=== PATIENT | female | born 1950 | race Caucasian/White ===

== ENCOUNTER 2017-06-20 06:25 | Inpatient (IN) ==
[~2017-06-20 06:25] MED LIST: FAMOTIDINE 20 MG/2 ML VIAL IV ONE; LEVOFLOXACIN INJ 500 MG in PREMIX 1 EACH IV ONE; SODIUM CHLORIDE 0.45% 1,000 ML IV SCH; diphenhydrAMINE 50 MG/1 ML VIAL IV ONE; methylPREDNISolone SOD SUC 125 MG/2 ML VIAL IV ONE
[2017-06-20] MEDS ORDERED: DIAZEPAM 5 MG TABLET PO STA (08:06)
[2017-06-20] MEDS ORDERED: DIAZEPAM 5 MG TABLET ONE ×2 (08:10)
[2017-06-20] MEDS ORDERED: HEPARIN/NACL 0.9% 2 UNITS/ML 2,000 ML IV ONE (08:51)
[2017-06-20] MEDS ORDERED: methylPREDNISolone SOD SUC 125 MG/2 ML VIAL ONE (09:13)
[2017-06-20] MEDS ORDERED: diphenhydrAMINE 50 MG/1 ML VIAL ONE (09:13)
[2017-06-20] MEDS ORDERED: LEVOFLOXACIN INJ 100 ML IV ONE (09:14)
[2017-06-20] MEDS ORDERED: FAMOTIDINE 20 MG/2 ML VIAL IV ONE (09:14)
[2017-06-20 09:18] LABS: Apearance,Urine CLEAR (Clear); Bilirubin,Urine Negative (Negative); Blood, Urine Small mg/dL (Negative); Glucose,Urine (UA) Negative (Negative); Hyaline Casts,Urine 1 /LPF (0-3); Ketones,Urine Negative (Negative); Mucus,Urine Many /LPF (Occasional); Nitrite,Urine Negative (Negative); Protein,Urine Negative; RBC,Urine <1 /HPF (0-4); Squamous Epithelial Cell,Urine Occasional /HPF (0-10); Urine Color Yellow (Yellow); Urine Specific Gravity 1.011 (1.001-1.035); Urine Urobilinogen < 2.0 EU/DL (0.2-1.0); WBC,Urine <1 /HPF (0-6)
[2017-06-20] MEDS ORDERED: fentaNYL 100 MCG/2 ML VIAL ONE (09:57)
[2017-06-20] MEDS ORDERED: MIDAZOLAM 2 MG/2 ML VIAL ONE ×3 (09:58→12:07)
[2017-06-20] MEDS: MIDAZOLAM 2 MG/2 ML VIAL IV ONE ×2 (10:10→12:24)
[2017-06-20] MEDS: fentaNYL 100 MCG/2 ML VIAL IV ONE ×2 (10:13→12:23)
[2017-06-20] MEDS ORDERED: HYDROmorphone 2 MG/1 ML VIAL ONE (12:08)
[2017-06-20] MEDS: ONDANSETRON 4 MG/2 ML VIAL IV ONE ×2 (12:24→12:38)
[2017-06-20] MEDS ORDERED: PANTOPRAZOLE 40 MG VIAL IV ONE (13:11)
[2017-06-20] MEDS ORDERED: PROMETHAZINE 25 MG/1 ML VIAL ONE (13:16)
[2017-06-20] MEDS ORDERED: PROMETHAZINE 25 MG/1 ML VIAL IM ONE (13:19)
[2017-06-20] MEDS: MORPHINE 2 MG/1 ML SYRINGE IV PRN ×3 (13:19→19:44)
[2017-06-20] MEDS: ONDANSETRON 4 MG/2 ML VIAL IV PRN (19:45)
[2017-06-20] MEDS: PROMETHAZINE 25 MG TABLET PO PRN (20:50)
[2017-06-20] MEDS: ZALEPLON 5 MG CAPSULE PO SCH (20:50)
[2017-06-20] MEDS: GABAPENTIN 300 MG CAPSULE PO SCH (20:50)
[2017-06-21] MEDS: ONDANSETRON 4 MG/2 ML VIAL IV PRN ×4 (00:06→21:03)
[2017-06-21] MEDS: MORPHINE 2 MG/1 ML SYRINGE IV PRN ×2 (03:43→08:46)
[2017-06-21] MEDS: PROMETHAZINE 25 MG TABLET PO PRN (03:43)
[2017-06-21] MEDS: PROMETHAZINE 25 MG/1 ML VIAL IM PRN ×2 (09:54→17:24)
[2017-06-21] MEDS: SODIUM CHLORIDE 0.45% 1,000 ML IV SCH ×2 (09:59→17:54)
[2017-06-21] MEDS: GABAPENTIN 300 MG CAPSULE PO SCH ×2 (09:59→21:18)
[2017-06-21] MEDS: HYDROmorphone 2 MG/1 ML VIAL IV PRN ×3 (11:49→21:00)
[2017-06-21] MEDS: ZALEPLON 5 MG CAPSULE PO SCH (21:19)
[2017-06-22] MEDS: PROMETHAZINE 25 MG/1 ML VIAL IM PRN (00:11)
[2017-06-22] MEDS: HYDROmorphone 2 MG/1 ML VIAL IV PRN ×7 (00:14→20:28)
[2017-06-22] MEDS: SODIUM CHLORIDE 0.45% 1,000 ML IV SCH ×3 (02:15→21:21)
[2017-06-22] MEDS: ONDANSETRON 4 MG/2 ML VIAL IV PRN (03:25)
[2017-06-22] MEDS ORDERED: DOCUSATE SODIUM 100 MG CAPSULE PO ONE (08:52)
[2017-06-22] MEDS ORDERED: ONDANSETRON 4 MG/2 ML VIAL IV ONE (08:52)
[2017-06-22] MEDS: GABAPENTIN 300 MG CAPSULE PO SCH ×2 (11:41→20:24)
[2017-06-22] MEDS: ONDANSETRON 4 MG/2 ML VIAL IV SCH ×2 (13:47→20:25)
[2017-06-22] MEDS: ZALEPLON 5 MG CAPSULE PO SCH (20:24)
[2017-06-22] MEDS ORDERED: HYDROmorphone 2 MG/1 ML VIAL IV PRN (21:14)
[2017-06-23] MEDS: ONDANSETRON 4 MG/2 ML VIAL IV SCH ×2 (02:22→08:45)
[2017-06-23] MEDS: GABAPENTIN 300 MG CAPSULE PO SCH (08:33)
[2017-06-23 11:39] VITALS: BP 118/61
[2017-06-23] MEDS ORDERED: HEPARIN LOCK FLUSH 500 UNIT/5 ML SYRINGE IV PRN (12:33)
== END 2017-06-23 13:20 | disposition home or self-care (01) | DRG 357 ==
LOC: N.RAD 06:25 → N.SDSINP 07:37 → N.4E 10:14
PROVIDERS: ADMIT Radiology Diagnostic Radiology; ATTEND Radiology Diagnostic Radiology

== ENCOUNTER 2018-02-06 16:14 | Inpatient (IN) ==
[2018-02-06] MEDS ORDERED: SODIUM CHLORIDE 0.9% 500 ML IV STA ×2 (18:03→19:15)
[2018-02-06] MEDS ORDERED: ONDANSETRON 4 MG/2 ML VIAL IV STA (18:03)
[2018-02-06 18:28] LABS: PT Patient Result 10.7 SECS
[2018-02-06 18:35] LABS: Apearance,Urine CLEAR (Clear); Bilirubin,Urine Negative (Negative); Blood, Urine Negative (Negative); Glucose,Urine (UA) Negative (Negative); Ketones,Urine Negative (Negative); Mucus,Urine Few /LPF (Occasional); Nitrite,Urine Negative (Negative); Protein,Urine 30 MG/DL; Squamous Epithelial Cell,Urine Occasional /HPF (0-10); Urine Color Amber (Yellow); Urine Specific Gravity 1.017 (1.001-1.035); WBC,Urine 3 /HPF (0-6)
[2018-02-06 18:38] LABS: Albumin 2.6 G/DL (3.4-5.0); Bilirubin,Total 1.8 MG/DL (0.2-1.0); Calcium 8.3 MG/DL (8.5-10.1); Osmolality,Calculated 275.5 MOS/KG (273-304); Potassium 3.7 MMOL/L (3.5-5.1); Total Protein 7.1 G/DL (6.4-8.3)
[2018-02-06 18:41] LABS: Lactic Acid 2.1 MMOL/L (0.4-2.0)
[2018-02-06 20:17] LABS: Basophils % 0.8 % (0.0-0.8); Eosinophils # 0.1 10*3/uL (0.0-0.87); Eosinophils % 4.9 % (0.00-10.9); Hematocrit 26.3 VOL% (35.7-47.0); Hemoglobin 8.3 GM/DL (12.0-16.0); Immature Granulocytes % 3.3 %; Immature Granulocytes Absolute 0.04 #; Lymphocytes # 0.6 10*3/uL (1.4-4.0); Lymphocytes % 51.6 % (21.3-54.2); Mean Corpuscular HGB Conc 31.6 GM/DL (32-36); Mean Corpuscular Hemoglobin 36 PG (27-34); Mean Corpuscular Volume 113.4 FL (87-102); Mean Platelet Volume 13.2 FL (9.6-12.0); Monocytes # 0.2 10*3/uL (0.11-0.8); Monocytes % 13.1 % (1.7-12.7); Neutrophils # 0.3 10*3/uL (1.4-7.4); Neutrophils % 26.3 % (38.7-73.9); Red Blood Count 2.32 MC/CUMM (3.8-5.5); Red Cell Distribution Width 14.8 % (9.3-17.3); White Blood Count 1.2 T/CUMM (4-12)
[2018-02-06 20:21] LABS: Platelet Count 23 T/CUMM (130-400)
[2018-02-06 20:48] LABS: Eosinophils 10 % (0-10); Lymphocytes 47 % (20-55); Platelet Estimate Decreased; Segmented Neutrophils 30 % (50-85); Total Cells Counted 100
[2018-02-06 20:49] LABS: Anisocytosis 1+; Hypochromasia 2+; Tear Drop Cells Few
[2018-02-06 20:50] LABS: Ovalocytes Few
[2018-02-06 21:45] LABS: Basophils % 1.4 % (0.0-0.8); Eosinophils # 0.1 10*3/uL (0.0-0.87); Eosinophils % 6.8 % (0.00-10.9); Hematocrit 26.2 VOL% (35.7-47.0); Hemoglobin 8.2 GM/DL (12.0-16.0); Immature Granulocytes % 4.8 %; Immature Granulocytes Absolute 0.07 #; Lymphocytes # 0.9 10*3/uL (1.4-4.0); Lymphocytes % 58.9 % (21.3-54.2); Mean Corpuscular HGB Conc 31.3 GM/DL (32-36); Mean Corpuscular Hemoglobin 36 PG (27-34); Mean Corpuscular Volume 113.9 FL (87-102); Monocytes # 0.1 10*3/uL (0.11-0.8); Monocytes % 7.5 % (1.7-12.7); Neutrophils # 0.3 10*3/uL (1.4-7.4); Neutrophils % 20.6 % (38.7-73.9); Red Cell Distribution Width 14.9 % (9.3-17.3); White Blood Count 1.5 T/CUMM (4-12)
[2018-02-06 21:55] LABS: Platelet Count 23 T/CUMM (130-400)
[2018-02-06 22:15] LABS: Eosinophils 7 % (0-10); Lymphocytes 62 % (20-55); Platelet Estimate Decreased; Segmented Neutrophils 26 % (50-85); Total Cells Counted 99
[2018-02-06] MEDS ORDERED: HYDROmorphone 2 MG/1 ML VIAL IV STA (22:44)
[2018-02-07] MEDS ORDERED: diphenhydrAMINE CAP 25 MG CAPSULE PO PRN (01:27)
[2018-02-07] MEDS ORDERED: CLORAZEPATE 7.5 MG TABLET PO PRN (01:27)
[2018-02-07] MEDS ORDERED: DIPHENOXYLATE/ATROPINE 2.5-0.025 MG TABLET PO PRN (01:27)
[2018-02-07] MEDS ORDERED: PROMETHAZINE 25 MG TABLET PO PRN (01:27)
[2018-02-07] MEDS ORDERED: cycloSPORINE OPH EMUL 1 VIAL BOTH EYES PRN (01:27)
[2018-02-07] MEDS: SODIUM CHLORIDE 0.9% 1,000 ML IV SCH ×2 (02:24→21:15)
[2018-02-07] MEDS ORDERED: ZALEPLON 5 MG CAPSULE ONE (02:57)
[2018-02-07] MEDS: ZALEPLON 5 MG CAPSULE PO SCH ×2 (02:58→21:18)
[2018-02-07 03:43] LABS: Basophils % 1.4 % (0.0-0.8); Eosinophils # 0.1 10*3/uL (0.0-0.87); Hematocrit 23.7 VOL% (35.7-47.0); Hemoglobin 7.4 GM/DL (12.0-16.0); Lymphocytes % 67.1 % (21.3-54.2); Mean Corpuscular HGB Conc 31.2 GM/DL (32-36); Mean Corpuscular Hemoglobin 35 PG (27-34); Mean Corpuscular Volume 112.9 FL (87-102); Monocytes # 0.1 10*3/uL (0.11-0.8); Monocytes % 6.3 % (1.7-12.7); Neutrophils # 0.3 10*3/uL (1.4-7.4); Neutrophils % 18.2 % (38.7-73.9); Red Cell Distribution Width 14.8 % (9.3-17.3); White Blood Count 1.4 T/CUMM (4-12)
[2018-02-07 03:50] LABS: Platelet Count 20 T/CUMM (130-400)
[2018-02-07 04:09] LABS: Calcium 7.6 MG/DL (8.5-10.1); Osmolality,Calculated 280.3 MOS/KG (273-304); Potassium 3.6 MMOL/L (3.5-5.1)
[2018-02-07 04:22] LABS: Eosinophils 5 % (0-10); Lymphocytes 73 % (20-55); Segmented Neutrophils 14 % (50-85)
[2018-02-07 04:23] LABS: Platelet Estimate Decreased; Polychromasia Few; Total Cells Counted 100
[2018-02-07] MEDS ORDERED: SODIUM CHLORIDE 0.9% 1,000 ML IV PRN (07:47)
[2018-02-07] MEDS ORDERED: MYLANTA/LIDO VISC/NYST 180 ML BOTTLE SWISH/SWAL PRN (07:51)
[2018-02-07] MEDS: guaiFENesin/DM ER 600-30 MG TABLET PO SCH ×2 (09:05→21:43)
[2018-02-07] MEDS: GABAPENTIN 300 MG CAPSULE PO SCH (09:09)
[2018-02-07] MEDS: CIPROFLOXACIN 500 MG TABLET PO SCH ×2 (09:10→21:18)
[2018-02-07] MEDS: PANTOPRAZOLE 40 MG TABLET PO SCH (09:11)
[2018-02-07] MEDS: fentaNYL 50 MCG/HR PATCH TRANSDERM SCH (09:12)
[2018-02-07] MEDS: FILGRASTIM-SNDZ 300 MCG/0.5 ML SYRINGE SUBCUT SCH (09:13)
[2018-02-07] MEDS: FLUCONAZOLE INJ 200 MG in PREMIX 1 EACH IV SCH (09:15)
[2018-02-07] MEDS: ONDANSETRON 4 MG/2 ML VIAL IV PRN ×2 (16:08→22:28)
[2018-02-07] MEDS: GABAPENTIN 600 MG TABLET PO SCH (21:29)
[2018-02-08 05:58] LABS: Basophils % 0.6 % (0.0-0.8); Eosinophils # 0.1 10*3/uL (0.0-0.87); Hematocrit 21.5 VOL% (35.7-47.0); Hemoglobin 6.6 GM/DL (12.0-16.0); Immature Granulocytes % 5.1 %; Immature Granulocytes Absolute 0.08 #; Lymphocytes % 65.2 % (21.3-54.2); Mean Corpuscular HGB Conc 30.7 GM/DL (32-36); Mean Corpuscular Hemoglobin 34 PG (27-34); Mean Corpuscular Volume 109.1 FL (87-102); Mean Platelet Volume 13.7 FL (9.6-12.0); Monocytes # 0.2 10*3/uL (0.11-0.8); Monocytes % 10.8 % (1.7-12.7); Neutrophils # 0.2 10*3/uL (1.4-7.4); Neutrophils % 11.3 % (38.7-73.9); Red Blood Count 1.97 MC/CUMM (3.8-5.5); Red Cell Distribution Width 17.3 % (9.3-17.3); White Blood Count 1.6 T/CUMM (4-12)
[2018-02-08 06:11] LABS: Platelet Count 26 T/CUMM (130-400)
[2018-02-08 06:15] LABS: Calcium 7.9 MG/DL (8.5-10.1); Osmolality,Calculated 280.1 MOS/KG (273-304); Potassium 3.6 MMOL/L (3.5-5.1)
[2018-02-08 06:45] LABS: Eosinophils 14 % (0-10); Lymphocytes 62 % (20-55); Platelet Estimate Decreased; Segmented Neutrophils 19 % (50-85); Total Cells Counted 100
[2018-02-08 06:46] LABS: Hypochromasia 1+; Microcytosis 1+
[2018-02-08] MEDS ORDERED: SODIUM CHLORIDE 0.9% 1,000 ML IV PRN (07:54)
[2018-02-08] MEDS: FILGRASTIM-SNDZ 300 MCG/0.5 ML SYRINGE SUBCUT SCH (08:51)
[2018-02-08] MEDS: PANTOPRAZOLE 40 MG TABLET PO SCH (08:52)
[2018-02-08] MEDS: CIPROFLOXACIN 500 MG TABLET PO SCH ×2 (08:52→21:14)
[2018-02-08] MEDS: GABAPENTIN 300 MG CAPSULE PO SCH (08:52)
[2018-02-08] MEDS: FLUCONAZOLE INJ 200 MG in PREMIX 1 EACH IV SCH (08:52)
[2018-02-08] MEDS: guaiFENesin/DM ER 600-30 MG TABLET PO SCH ×2 (09:05→21:52)
[2018-02-08] MEDS: ONDANSETRON 4 MG/2 ML VIAL IV PRN (09:54)
[2018-02-08] MEDS: SODIUM CHLORIDE 0.9% 1,000 ML IV SCH (12:01)
[2018-02-08] MEDS: DOCUSATE SODIUM 100 MG CAPSULE PO PRN (12:05)
[2018-02-08] MEDS: MAGNESIUM CHLORIDE 64 MG TABLET PO SCH (17:09)
[2018-02-08] MEDS: MULTIVITAMIN (BEROCCA) TABLET PO SCH (17:09)
[2018-02-08] MEDS: GABAPENTIN 600 MG TABLET PO SCH (21:14)
[2018-02-08] MEDS: ZALEPLON 5 MG CAPSULE PO SCH (21:14)
[2018-02-09 04:06] LABS: Basophils % 1.1 % (0.0-0.8); Eosinophils # 0.1 10*3/uL (0.0-0.87); Hematocrit 34.5 VOL% (35.7-47.0); Immature Granulocytes % 0.7 %; Immature Granulocytes Absolute 0.02 #; Lymphocytes # 1.2 10*3/uL (1.4-4.0); Lymphocytes % 43.1 % (21.3-54.2); Mean Corpuscular HGB Conc 32.5 GM/DL (32-36); Mean Corpuscular Hemoglobin 33 PG (27-34); Mean Corpuscular Volume 102.4 FL (87-102); Monocytes # 0.4 10*3/uL (0.11-0.8); Monocytes % 12.8 % (1.7-12.7); Neutrophils # 1.1 10*3/uL (1.4-7.4); Neutrophils % 38.3 % (38.7-73.9); Red Blood Count 3.37 MC/CUMM (3.8-5.5); Red Cell Distribution Width 20.8 % (9.3-17.3); White Blood Count 2.7 T/CUMM (4-12)
[2018-02-09 04:16] LABS: Calcium 7.7 MG/DL (8.5-10.1); Osmolality,Calculated 282.8 MOS/KG (273-304); Potassium 3.6 MMOL/L (3.5-5.1)
[2018-02-09 04:22] LABS: % Iron Saturation 41.9 % (18-50); Ferritin 1364.5 ng/ml (8-252)
[2018-02-09 04:30] LABS: Folate > 24.0 NG/ML (5.4-24.0); Vitamin B12 > 2000 PG/ML (211-911)
[2018-02-09 05:03] LABS: Platelet Count 31 T/CUMM (130-400)
[2018-02-09 05:04] LABS: Hemoglobin 11.2 GM/DL (12.0-16.0)
[2018-02-09 05:19] LABS: Atypical Lymphocytes Few; Band Neutrophils 1 % (0-10); Eosinophils 7 % (0-10); Lymphocytes 46 % (20-55); Nucleated Red Blood Cells 1 (0-5); Segmented Neutrophils 33 % (50-85); Total Cells Counted 100
[2018-02-09 05:20] LABS: Hypochromasia 1+; Macrocytosis 1+
[2018-02-09 05:21] LABS: Anisocytosis 1+; Ovalocytes Slight; Platelet Estimate Decreased
[2018-02-09 05:35] LABS: Sedimentation Rate-Westergren 65 MM/HR (0-30)
[2018-02-09] MEDS: MAGNESIUM CHLORIDE 64 MG TABLET PO SCH (08:59)
[2018-02-09] MEDS: GABAPENTIN 300 MG CAPSULE PO SCH (08:59)
[2018-02-09] MEDS: FLUCONAZOLE INJ 200 MG in PREMIX 1 EACH IV SCH (08:59)
[2018-02-09] MEDS: MULTIVITAMIN (BEROCCA) TABLET PO SCH (08:59)
[2018-02-09] MEDS: PANTOPRAZOLE 40 MG TABLET PO SCH (08:59)
[2018-02-09] MEDS: CIPROFLOXACIN 500 MG TABLET PO SCH ×2 (08:59→20:07)
[2018-02-09] MEDS: FILGRASTIM-SNDZ 300 MCG/0.5 ML SYRINGE SUBCUT SCH (09:00)
[2018-02-09] MEDS: guaiFENesin/DM ER 600-30 MG TABLET PO SCH ×2 (09:00→20:07)
[2018-02-09] MEDS: SODIUM CHLORIDE 0.9% 1,000 ML IV SCH ×3 (09:05→20:10)
[2018-02-09] MEDS: DOCUSATE SODIUM 100 MG CAPSULE PO PRN (09:16)
[2018-02-09 10:15] LABS: Hemoglobin A1 (Alkaline) 97.1 % (96.5-98.5); Hemoglobin A2 (Alkaline) 2.9 % (1.5-3.5)
[2018-02-09] MEDS ORDERED: BISACODYL 5 MG TABLET PO PRN (17:08)
[2018-02-09] MEDS: GABAPENTIN 600 MG TABLET PO SCH (20:07)
[2018-02-09] MEDS: ZALEPLON 5 MG CAPSULE PO SCH (20:07)
[2018-02-10] MEDS: MULTIVITAMIN (BEROCCA) TABLET PO SCH (09:47)
[2018-02-10] MEDS: GABAPENTIN 300 MG CAPSULE PO SCH (09:47)
[2018-02-10] MEDS: fentaNYL 50 MCG/HR PATCH TRANSDERM SCH (09:48)
[2018-02-10] MEDS: PANTOPRAZOLE 40 MG TABLET PO SCH (09:48)
[2018-02-10] MEDS: CIPROFLOXACIN 500 MG TABLET PO SCH (09:48)
[2018-02-10] MEDS: FLUCONAZOLE INJ 200 MG in PREMIX 1 EACH IV SCH (09:48)
[2018-02-10] MEDS: MAGNESIUM CHLORIDE 64 MG TABLET PO SCH (09:48)
[2018-02-10] MEDS: FILGRASTIM-SNDZ 300 MCG/0.5 ML SYRINGE SUBCUT SCH (09:49)
[2018-02-10] MEDS: guaiFENesin/DM ER 600-30 MG TABLET PO SCH (09:49)
[2018-02-10] MEDS: SODIUM CHLORIDE 0.9% 1,000 ML IV SCH (09:49)
[2018-02-10] MEDS ORDERED: HEPARIN LOCK FLUSH 500 UNIT/5 ML SYRINGE IV ONE (11:47)
[2018-02-10 11:52] VITALS: BP 101/51
== END 2018-02-10 12:35 | disposition home health service (06) | DRG 809 ==
LOC: N.EDINP 16:14 → N.ED 16:14 → N.4E 02-07 01:29
PROVIDERS: ADMIT Hospitalist; ATTEND Hospitalist

== ENCOUNTER 2018-03-03 11:03 | Inpatient (IN) ==
[2018-03-03 12:01] LABS: Basophils # 0.1 10*3/uL (0.0-0.2); Basophils % 0.9 % (0.0-0.8); Eosinophils # 0.3 10*3/uL (0.0-0.87); Eosinophils % 2.5 % (0.00-10.9); Hematocrit 35.9 VOL% (35.7-47.0); Hemoglobin 11.4 GM/DL (12.0-16.0); Immature Granulocytes % 0.4 %; Immature Granulocytes Absolute 0.05 #; Lymphocytes # 1.3 10*3/uL (1.4-4.0); Mean Corpuscular HGB Conc 31.8 GM/DL (32-36); Mean Corpuscular Hemoglobin 33 PG (27-34); Mean Corpuscular Volume 103.2 FL (87-102); Monocytes # 1.2 10*3/uL (0.11-0.8); Monocytes % 10.7 % (1.7-12.7); Neutrophils # 8.2 10*3/uL (1.4-7.4); Neutrophils % 73.5 % (38.7-73.9); Platelet Count 217 T/CUMM (130-400); Red Blood Count 3.48 MC/CUMM (3.8-5.5); Red Cell Distribution Width 19.3 % (9.3-17.3); White Blood Count 11.2 T/CUMM (4-12)
[2018-03-03 12:26] LABS: Albumin 1.9 G/DL (3.4-5.0); Bilirubin,Total 1.3 MG/DL (0.2-1.0); Calcium 8.4 MG/DL (8.5-10.1); Osmolality,Calculated 280.1 MOS/KG (273-304); Potassium 3.8 MMOL/L (3.5-5.1)
[2018-03-03] MEDS ORDERED: ONDANSETRON 4 MG/2 ML VIAL IV STA (13:31)
[2018-03-03] MEDS ORDERED: HYDROmorphone 2 MG/1 ML VIAL IV STA (14:45)
[2018-03-03] MEDS ORDERED: ACETAMINOPHEN 325 MG TABLET PO PRN (15:32)
[2018-03-03] MEDS ORDERED: diphenhydrAMINE CAP 25 MG CAPSULE PO PRN (16:45)
[2018-03-03] MEDS ORDERED: cycloSPORINE OPH EMUL 1 VIAL BOTH EYES PRN (16:45)
[2018-03-03] MEDS ORDERED: DIPHENOXYLATE/ATROPINE 2.5-0.025 MG TABLET PO PRN (16:45)
[2018-03-03] MEDS ORDERED: CLORAZEPATE 7.5 MG TABLET PO PRN ×2 (16:45→16:48)
[2018-03-03] MEDS: SODIUM CHLORIDE 0.9% 1,000 ML IV SCH (18:46)
[2018-03-03] MEDS: guaiFENesin/DM ER 600-30 MG TABLET PO SCH (18:50)
[2018-03-03] MEDS: DOCUSATE SODIUM 100 MG CAPSULE PO PRN (20:05)
[2018-03-03] MEDS: ZALEPLON 5 MG CAPSULE PO SCH (20:05)
[2018-03-03] MEDS ORDERED: GABAPENTIN 300 MG CAPSULE PO SCH (21:00)
[2018-03-04] MEDS: guaiFENesin/DM ER 600-30 MG TABLET PO SCH ×2 (03:58→21:02)
[2018-03-04 04:17] LABS: Basophils # 0.1 10*3/uL (0.0-0.2); Basophils % 0.9 % (0.0-0.8); Eosinophils # 0.5 10*3/uL (0.0-0.87); Eosinophils % 5.2 % (0.00-10.9); Hematocrit 31.4 VOL% (35.7-47.0); Hemoglobin 10.1 GM/DL (12.0-16.0); Immature Granulocytes % 0.5 %; Immature Granulocytes Absolute 0.05 #; Lymphocytes # 2.2 10*3/uL (1.4-4.0); Lymphocytes % 21.9 % (21.3-54.2); Mean Corpuscular HGB Conc 32.2 GM/DL (32-36); Mean Corpuscular Hemoglobin 34 PG (27-34); Mean Corpuscular Volume 104.3 FL (87-102); Mean Platelet Volume 10.2 FL (9.6-12.0); Monocytes # 1.2 10*3/uL (0.11-0.8); Monocytes % 11.9 % (1.7-12.7); Neutrophils % 59.6 % (38.7-73.9); Platelet Count 198 T/CUMM (130-400); Red Blood Count 3.01 MC/CUMM (3.8-5.5); Red Cell Distribution Width 19.2 % (9.3-17.3)
[2018-03-04 04:40] LABS: Calcium 7.9 MG/DL (8.5-10.1); Osmolality,Calculated 282.8 MOS/KG (273-304); Potassium 3.8 MMOL/L (3.5-5.1)
[2018-03-04] MEDS: SODIUM CHLORIDE 0.9% 1,000 ML IV SCH ×2 (05:24→18:28)
[2018-03-04 07:00] LABS: Apearance,Urine Slightly Hazy (Clear); Bilirubin,Urine Negative (Negative); Blood, Urine Negative (Negative); Glucose,Urine (UA) Negative (Negative); Ketones,Urine Negative (Negative); Mucus,Urine Many /LPF (Occasional); Nitrite,Urine Negative (Negative); Protein,Urine Negative; RBC,Urine 2 /HPF (0-4); Squamous Epithelial Cell,Urine Occasional /HPF (0-10); Urine Color Yellow (Yellow); Urine Specific Gravity 1.013 (1.001-1.035); WBC,Urine 91 /HPF (0-6)
[2018-03-04] MEDS: GABAPENTIN 300 MG CAPSULE PO SCH ×2 (08:48→20:33)
[2018-03-04] MEDS: MAGNESIUM CHLORIDE 64 MG TABLET PO SCH (08:48)
[2018-03-04] MEDS: ONDANSETRON 4 MG/2 ML VIAL IV PRN ×2 (08:49→18:28)
[2018-03-04] MEDS: MULTIVITAMIN (BEROCCA) TABLET PO SCH (09:34)
[2018-03-04] MEDS: fentaNYL 50 MCG/HR PATCH TRANSDERM SCH (10:19)
[2018-03-04] MEDS: CIPROFLOXACIN 500 MG TABLET PO SCH ×2 (10:19→20:33)
[2018-03-04] MEDS: HYDROmorphone 2 MG/1 ML VIAL IV PRN ×2 (10:21→20:54)
[2018-03-04] MEDS: DOCUSATE SODIUM 100 MG CAPSULE PO PRN ×2 (10:22→20:54)
[2018-03-04] MEDS: ZALEPLON 5 MG CAPSULE PO SCH (20:33)
[2018-03-05] MEDS: guaiFENesin/DM ER 600-30 MG TABLET PO SCH ×3 (04:31→16:13)
[2018-03-05] MEDS: MULTIVITAMIN (BEROCCA) TABLET PO SCH (08:32)
[2018-03-05] MEDS: ONDANSETRON 4 MG/2 ML VIAL IV PRN (08:32)
[2018-03-05] MEDS: GABAPENTIN 300 MG CAPSULE PO SCH ×2 (08:32→21:15)
[2018-03-05] MEDS: CIPROFLOXACIN 500 MG TABLET PO SCH ×2 (08:32→21:15)
[2018-03-05] MEDS: MAGNESIUM CHLORIDE 64 MG TABLET PO SCH (08:32)
[2018-03-05] MEDS: SODIUM CHLORIDE 0.9% 1,000 ML IV SCH (08:34)
[2018-03-05] MEDS: HYDROmorphone 2 MG/1 ML VIAL IV PRN ×2 (08:35→21:16)
[2018-03-05] MEDS: PROMETHAZINE 25 MG/1 ML VIAL IM PRN (13:14)
[2018-03-05] MEDS ORDERED: BISACODYL 5 MG TABLET PO PRN (13:27)
[2018-03-05] MEDS: VANCOMYCIN INJ 1,500 MG in SODIUM CHLORIDE 0.9% 500 ML IV SCH (17:08)
[2018-03-05] MEDS: ZALEPLON 5 MG CAPSULE PO SCH (21:15)
[2018-03-06] MEDS: guaiFENesin/DM ER 600-30 MG TABLET PO SCH ×2 (04:49→17:02)
[2018-03-06] MEDS: VANCOMYCIN INJ 1,500 MG in SODIUM CHLORIDE 0.9% 500 ML IV SCH ×2 (04:51→17:01)
[2018-03-06] MEDS: HYDROmorphone 2 MG/1 ML VIAL IV PRN ×3 (04:52→20:11)
[2018-03-06] MEDS: CIPROFLOXACIN 500 MG TABLET PO SCH ×2 (09:35→22:53)
[2018-03-06] MEDS: MAGNESIUM CHLORIDE 64 MG TABLET PO SCH (09:35)
[2018-03-06] MEDS: GABAPENTIN 300 MG CAPSULE PO SCH ×2 (09:36→22:53)
[2018-03-06] MEDS: MULTIVITAMIN (BEROCCA) TABLET PO SCH (09:36)
[2018-03-06] MEDS: PROMETHAZINE 25 MG/1 ML VIAL IM PRN ×2 (09:41→20:11)
[2018-03-06 10:27] LABS: Basophils # 0.1 10*3/uL (0.0-0.2); Basophils % 0.7 % (0.0-0.8); Eosinophils # 0.8 10*3/uL (0.0-0.87); Eosinophils % 6.8 % (0.00-10.9); Hematocrit 33.3 VOL% (35.7-47.0); Hemoglobin 10.1 GM/DL (12.0-16.0); Immature Granulocytes % 0.5 %; Immature Granulocytes Absolute 0.06 #; Lymphocytes # 1.6 10*3/uL (1.4-4.0); Lymphocytes % 14.3 % (21.3-54.2); Mean Corpuscular HGB Conc 30.3 GM/DL (32-36); Mean Corpuscular Hemoglobin 33 PG (27-34); Mean Corpuscular Volume 107.4 FL (87-102); Mean Platelet Volume 10.2 FL (9.6-12.0); Monocytes # 1.4 10*3/uL (0.11-0.8); Monocytes % 11.9 % (1.7-12.7); Neutrophils # 7.4 10*3/uL (1.4-7.4); Neutrophils % 65.8 % (38.7-73.9); Platelet Count 147 T/CUMM (130-400); Red Cell Distribution Width 19.5 % (9.3-17.3); White Blood Count 11.3 T/CUMM (4-12)
[2018-03-06 11:27] LABS: Albumin 1.8 G/DL (3.4-5.0); Bilirubin,Total 1.1 MG/DL (0.2-1.0); Calcium 7.5 MG/DL (8.5-10.1); Osmolality,Calculated 284.8 MOS/KG (273-304); Potassium 3.5 MMOL/L (3.5-5.1); Total Protein 5.6 G/DL (6.4-8.3)
[2018-03-06] MEDS: SODIUM CHLORIDE 0.9% 1,000 ML IV SCH ×2 (14:12)
[2018-03-06] MEDS: ZALEPLON 5 MG CAPSULE PO SCH (22:53)
[2018-03-07] MEDS: guaiFENesin/DM ER 600-30 MG TABLET PO SCH ×2 (05:08→17:08)
[2018-03-07] MEDS: PROMETHAZINE 25 MG/1 ML VIAL IM PRN ×2 (05:08→12:23)
[2018-03-07] MEDS: HYDROmorphone 2 MG/1 ML VIAL IV PRN ×4 (05:09→21:34)
[2018-03-07] MEDS: VANCOMYCIN INJ 1,500 MG in SODIUM CHLORIDE 0.9% 500 ML IV SCH (05:13)
[2018-03-07 05:49] LABS: Basophils # 0.1 10*3/uL (0.0-0.2); Basophils % 0.5 % (0.0-0.8); Eosinophils # 0.8 10*3/uL (0.0-0.87); Eosinophils % 7.4 % (0.00-10.9); Hematocrit 33.3 VOL% (35.7-47.0); Hemoglobin 10.2 GM/DL (12.0-16.0); Immature Granulocytes % 0.4 %; Immature Granulocytes Absolute 0.05 #; Lymphocytes # 2.2 10*3/uL (1.4-4.0); Lymphocytes % 19.7 % (21.3-54.2); Mean Corpuscular HGB Conc 30.6 GM/DL (32-36); Mean Corpuscular Hemoglobin 33 PG (27-34); Mean Corpuscular Volume 107.1 FL (87-102); Monocytes # 1.3 10*3/uL (0.11-0.8); Monocytes % 11.4 % (1.7-12.7); Neutrophils # 6.8 10*3/uL (1.4-7.4); Neutrophils % 60.6 % (38.7-73.9); Platelet Count 171 T/CUMM (130-400); Red Blood Count 3.11 MC/CUMM (3.8-5.5); Red Cell Distribution Width 19.3 % (9.3-17.3); White Blood Count 11.3 T/CUMM (4-12)
[2018-03-07 06:13] LABS: Albumin 1.8 G/DL (3.4-5.0); Bilirubin,Total 1.3 MG/DL (0.2-1.0); Calcium 7.8 MG/DL (8.5-10.1); Potassium 3.5 MMOL/L (3.5-5.1); Total Protein 5.7 G/DL (6.4-8.3)
[2018-03-07] MEDS: GABAPENTIN 300 MG CAPSULE PO SCH ×2 (09:36→21:42)
[2018-03-07] MEDS: DOCUSATE SODIUM 100 MG CAPSULE PO PRN (09:36)
[2018-03-07] MEDS: MAGNESIUM CHLORIDE 64 MG TABLET PO SCH (09:36)
[2018-03-07] MEDS: MULTIVITAMIN (BEROCCA) TABLET PO SCH (09:36)
[2018-03-07] MEDS: CIPROFLOXACIN 500 MG TABLET PO SCH ×2 (09:36→21:42)
[2018-03-07] MEDS: fentaNYL 50 MCG/HR PATCH TRANSDERM SCH (09:37)
[2018-03-07] MEDS: SODIUM CHLORIDE 0.9% 1,000 ML IV SCH (09:40)
[2018-03-07] MEDS ORDERED: FOSFOMYCIN 3 GM PACK PO ONE (13:13)
[2018-03-07] MEDS: ONDANSETRON 4 MG/2 ML VIAL IV PRN ×2 (17:14→21:31)
[2018-03-07] MEDS: ZALEPLON 5 MG CAPSULE PO SCH (21:41)
[2018-03-08] MEDS: HYDROmorphone 2 MG/1 ML VIAL IV PRN ×4 (03:06→20:42)
[2018-03-08] MEDS: guaiFENesin/DM ER 600-30 MG TABLET PO SCH ×2 (05:46→16:47)
[2018-03-08] MEDS ORDERED: VANCOMYCIN INJ 1,250 MG in SODIUM CHLORIDE 0.9% 250 ML IV SCH (06:00)
[2018-03-08] MEDS: MULTIVITAMIN (BEROCCA) TABLET PO SCH (10:26)
[2018-03-08] MEDS: CIPROFLOXACIN 500 MG TABLET PO SCH (10:26)
[2018-03-08] MEDS: MAGNESIUM CHLORIDE 64 MG TABLET PO SCH (10:26)
[2018-03-08] MEDS: ONDANSETRON 4 MG/2 ML VIAL IV PRN ×3 (10:26→20:43)
[2018-03-08] MEDS: GABAPENTIN 300 MG CAPSULE PO SCH ×2 (10:26→20:42)
[2018-03-08] MEDS: SODIUM CHLORIDE 0.9% 1,000 ML IV SCH ×2 (14:51)
[2018-03-08] MEDS: ZALEPLON 5 MG CAPSULE PO SCH (20:42)
[2018-03-09] MEDS: SODIUM CHLORIDE 0.9% 1,000 ML IV SCH ×2 (02:38→16:46)
[2018-03-09] MEDS: HYDROmorphone 2 MG/1 ML VIAL IV PRN ×4 (02:39→21:27)
[2018-03-09] MEDS: guaiFENesin/DM ER 600-30 MG TABLET PO SCH ×2 (05:58→16:41)
[2018-03-09] MEDS: MULTIVITAMIN (BEROCCA) TABLET PO SCH (08:38)
[2018-03-09] MEDS: MAGNESIUM CHLORIDE 64 MG TABLET PO SCH (08:38)
[2018-03-09] MEDS: GABAPENTIN 300 MG CAPSULE PO SCH ×2 (08:39→21:26)
[2018-03-09] MEDS: PROMETHAZINE 25 MG/1 ML VIAL IM PRN (21:26)
[2018-03-09] MEDS: ZALEPLON 5 MG CAPSULE PO SCH (21:26)
[2018-03-10] MEDS: HYDROmorphone 2 MG/1 ML VIAL IV PRN ×4 (05:04→20:37)
[2018-03-10] MEDS: guaiFENesin/DM ER 600-30 MG TABLET PO SCH ×2 (05:04→16:57)
[2018-03-10] MEDS: SODIUM CHLORIDE 0.9% 1,000 ML IV SCH ×2 (05:07→20:39)
[2018-03-10] MEDS: MAGNESIUM CHLORIDE 64 MG TABLET PO SCH (08:40)
[2018-03-10] MEDS: MULTIVITAMIN (BEROCCA) TABLET PO SCH (08:40)
[2018-03-10] MEDS: fentaNYL 50 MCG/HR PATCH TRANSDERM SCH (08:41)
[2018-03-10] MEDS: GABAPENTIN 300 MG CAPSULE PO SCH ×2 (08:42→20:35)
[2018-03-10] MEDS: ONDANSETRON 4 MG/2 ML VIAL IV PRN ×2 (10:23→20:36)
[2018-03-10] MEDS: ZALEPLON 5 MG CAPSULE PO SCH (20:35)
[2018-03-11] MEDS: guaiFENesin/DM ER 600-30 MG TABLET PO SCH ×2 (04:17→15:48)
[2018-03-11] MEDS: HYDROmorphone 2 MG/1 ML VIAL IV PRN ×4 (04:18→21:00)
[2018-03-11] MEDS: MULTIVITAMIN (BEROCCA) TABLET PO SCH (08:29)
[2018-03-11] MEDS: MAGNESIUM CHLORIDE 64 MG TABLET PO SCH (08:29)
[2018-03-11] MEDS: GABAPENTIN 300 MG CAPSULE PO SCH ×2 (08:29→20:56)
[2018-03-11] MEDS: ONDANSETRON 4 MG/2 ML VIAL IV PRN ×3 (08:34→20:58)
[2018-03-11] MEDS: SODIUM CHLORIDE 0.9% 1,000 ML IV SCH ×2 (08:40→23:16)
[2018-03-11] MEDS ORDERED: ALUM/MAG/SIMETH/LIDO VISC 1:1 30 ML BOTTLE PO ONE (20:06)
[2018-03-11] MEDS ORDERED: ALUMINUM/MAGNES/SIMETH MAX STR 30 ML UDCUP PO PRN (20:06)
[2018-03-11] MEDS ORDERED: ZALEPLON 5 MG CAPSULE PO SCH (21:00)
[2018-03-12] MEDS: guaiFENesin/DM ER 600-30 MG TABLET PO SCH (04:19)
[2018-03-12] MEDS: HYDROmorphone 2 MG/1 ML VIAL IV PRN ×2 (04:19→08:52)
[2018-03-12] MEDS: MULTIVITAMIN (BEROCCA) TABLET PO SCH (08:51)
[2018-03-12] MEDS: ONDANSETRON 4 MG/2 ML VIAL IV PRN (08:51)
[2018-03-12] MEDS: MAGNESIUM CHLORIDE 64 MG TABLET PO SCH (08:51)
[2018-03-12] MEDS: GABAPENTIN 300 MG CAPSULE PO SCH (08:51)
[2018-03-12 09:22] VITALS: BP 114/62
[2018-03-12] MEDS ORDERED: HEPARIN LOCK FLUSH 500 UNIT/5 ML SYRINGE IV PRN (10:06)
== END 2018-03-12 11:04 | disposition swing bed (61) | DRG 690 ==
LOC: N.ED 11:03 → N.EDINP 15:29 → SUATTDRO 15:29 → N.4E 16:24
PROVIDERS: ADMIT Internal Medicine; ATTEND Internal Medicine